=== PATIENT | female | born 1980 | race Caucasian/White ===

== ENCOUNTER → 2021-02-04 16:12 | Outpatient (CLI) | payer OTHER, SELFPAY ==
--- NOTE | ~2021-02-04 | MM_ITS ---
EXAMINATION: MM scrn tamika implant BI w bill HISTORY: Screening mammogram TECHNIQUE: Craniocaudal and mediolateral oblique 3-D tomosynthesis images with implant displacement a nd synthetic 2-D images were generated. Craniocaudal and mediolateral oblique views of the breasts wi thout implant displacement were obtained using full field digital mammography. CAD analysis was submi tted and interpreted. COMPARISON: No prior mammogram is available for comparison at this institution. BREAST PARENCHYMAL COMPOSITION: There are scattered areas of fibroglandular density. FINDINGS: Status post bilateral augmentation mammoplasty. There is no evidence of suspicious mass, ca lcification, or architectural distortion to suggest malignancy in either breast. There has been no mcnamara spicious interval change. IMPRESSION: 1. No mammographic evidence of malignancy. 2. Recommend routine screening mammography in one year. BI-RADS Category 1: Negative Reviewed, dictated and finalized at location A. CTOR SCRIPT
== END ==
PROVIDERS: PCP Internal Medicine; Visit Provider Advanced Practice Midwife
DX: Z12.31 Encounter for screening mammogram for malignant neoplasm of breast (principal)
CPT/HCPCS: 77063; 77067

== ENCOUNTER → 2021-02-04 16:15 | Outpatient (CLI) | payer OTHER, SELFPAY ==
--- NOTE | ~2021-02-04 | XR_ITS ---
EXAMINATION: XR TMJ BI DATE: 02/04/2021 17:17 INDICATION: Arthritis of bilateral temporomandibular joint. TECHNIQUE: Open and closed mouth views of the bilateral temporomandibular joints for a total of 4 vie ws were obtained. COMPARISON: None. FINDINGS: The mandibular condyles are normal in morphology. There is asymmetric narrowing of left tem poromandibular joint. There is normal anterior translation of the mandible condyles in the open-mouth position. IMPRESSION: 1. 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 Reviewed, dictated and finalized at location A. D OF EDUCATION SECRETARY
== END ==
PROVIDERS: PCP Internal Medicine; Visit Provider Internal Medicine
DX: M26.643 Arthritis of bilateral temporomandibular joint (principal)
CPT/HCPCS: 70330

== ENCOUNTER 2021-12-09 01:57 | Day surgery (SDC) | payer OTHER, SELFPAY ==
[2021-11-25 12:57] VITALS: BMI 23.8
[2021-12-09 11:41] VITALS: BP 129/92; PULSE 95; RESP 16; TEMP 36.9; O2SAT 100; BMI 23.2
--- NOTE | 2021-12-09 11:43 | WPDANESEPPF ---
Anes - Initial Pre Proc Eval Procedure: Operation Date: 12/09/21 13:00 Proposed Procedures p Colonoscopy - Hakeem Siddiqui MD s [facility] Hemorrhoid Treatment - Hakeem Siddiqui MD Date/Time: 12/09/21 11:43 Surgeon: Hakeem Siddiqui MD Pre Op Diagnosis: hemorrhoids, Diarrhea, melena Patient Data Age: 41 Gender: F Height: 1.63 m Weight: 63 kg Allergies Allergy/AdvReac Type Severity Reaction Status Date / Time No Known Allergies Allergy Verified 11/25/21 13:13 Home Medications Medication Instructions Recorded Confirmed Type cyclobenzaprine 10 mg tablet 10 mg PO TID 10/28/21 11/25/21 History hydrocortisone 2.5 % topical cream 1 applic RECTAL BID PRN 11/18/21 11/25/21 Rx with perineal applicator hemorrhoids #30 grams hyoscyamine sulfate 0.125 mg 0.125 mg PO .every 6 hours PRN 11/18/21 11/25/21 Rx tablet (Levsin) abdominal pain #120 tabs Patient hx anesthesia problems: none Family hx anesthesia problems: none Results Review: All pre-operative results and documents have been reviewed as part of the pre-operative evaluation. [facility] Past Medical History Medical History (Updated 11/18/21 @ 10:59 by Bernie Wilder APRN) Abdominal cramping Blood in stool External hemorrhoid, bleeding Surgical History Surgical History History of tonsillectomy (~2002) Hx of breast implants, bilateral (~1992) Family History Family History Mother Hypertension Sibling Thyroid disorder Grandparent Diabetes mellitus Hypertension Depression Cerebrovascular accident Cancer Grandparent Cancer Social History Social History Smoking status: Never smoker Second hand tobacco smoke exposure: No Alcohol intake: current Alcohol use details: social, maybe a few drinks once weekly Substance use: never Substance use type: does not use Living arrangements: with family Spiritual care concerns: No Anes - Eval Final PreProcedure Day of Procedure 12/09/21 11:43 Patient weight: normal Heart: regular rate and rhythm Lungs: clear to auscultation Airway: Mallampati scale class II Neurological: alert and oriented Last oral intake: >/= 8 hours ASA classification: II Emergent: no Anesthetic plan: proceed Anesthesia type and monitoring: general GIVS and standard monitoring Results Review: All pre-operative results and documents have been reviewed as part of the pre-operative evaluation. Informed Consent: The patient's anesthetic plan and its attendant risks and benefits were discussed with the patient/family/POA. Questions were solicited and answers provided to the satisfaction of the patient/family/POA.
[2021-12-09] MEDS: LACTATED RINGERS 1,000 ML 150 ML IV CONT (12:05)
--- NOTE | 2021-12-09 12:06 | WPDHPUPDATE1 ---
History and Physical Update Update Date/Time: 12/09/21 12:06 History and Physical has been reviewed, including an updated exam of the patient. There are NO changes in the patient's condition. Risks, benefits, and alternatives have been discussed and questions answered. Patient agrees to proceed with procedure.
[2021-12-09 12:27] VITALS: BP 124/87; PULSE 97; RESP 17; O2SAT 98
--- NOTE | 2021-12-09 12:29 | W.PM.PROC2 ---
Procedure Note - Detailed Date of Procedure 12/09/21 Pre-op Diagnosis hemorrhoids, Diarrhea, melena Post-op Diagnosis Same Procedure Performed IRC on internal hemorrhoids Surgeon Hakeem Siddiqui MD Description of Procedure noted external hemorrhoids, non-thrombosed, no fissure. Then anoscope was introduced and noted grade 2 internal hemorrhoids at 3-6 o'clock position, IRC probe advanced and internal hemorrhoids treated 1.5seconds x6
[2021-12-09 12:37] VITALS: BP 120/85; PULSE 103; RESP 16; O2SAT 100
[2021-12-09 12:47] VITALS: BP 132/95; PULSE 95; RESP 16; O2SAT 100
== END 2021-12-09 13:10 | disposition home or self-care (01) ==
PROVIDERS: PCP Internal Medicine; Visit Provider Internal Medicine Gastroenterology
PROC: 0DJD8ZZ Inspection of Lower Intestinal Tract, Via Natural or Artificial Opening Endoscopic (ICD-10-PCS; CPT 45378; principal; 2021-12-09 13:00)
PROC: (CPT 46930; 2021-12-09 13:00)
DX: K62.5 Hemorrhage of anus and rectum (principal); K64.1 Second degree hemorrhoids; K52.9 Noninfective gastroenteritis and colitis, unspecified; E73.9 Lactose intolerance, unspecified; R11.0 Nausea; R14.0 Abdominal distension (gaseous)
CPT/HCPCS: 46930; 45380; 88305; J2704; J7120

== ENCOUNTER → 2022-07-28 07:47 | Outpatient (CLI) | payer OTHER, SELFPAY ==
--- NOTE | ~2022-07-28 | MMUS_ITS ---
EXAMINATION: MM diag tamika implant BI w bill, US breast BI complete HISTORY: Mastodynia. Right breast pain at 1:00 intermittently for one month, now resolved. The latera l axillary area itching. TECHNIQUE: Implant displaced ML, MLO and CC 3-D tomosynthesis images of both breasts were performed a nd synthetic 2-D images were generated. Implant ML, MLO and CC views of both breasts. CAD analysis wa s submitted and interpreted. High resolution complete bilateral breast ultrasound examination includi ng all 4 quadrants and subareolar areas was performed. COMPARISON: 02/04/2021 bilateral implant screening mammogram BREAST PARENCHYMAL COMPOSITION: The breasts are heterogeneously dense, which may obscure small masses . FINDINGS: MAMMOGRAPHIC FINDINGS: Status post bilateral augmentation mammoplasty. No suspicious mass or architectural distortion, malignant calcification, skin thickening or retractio n or significant new or developing density is detected. ULTRASOUND: No suspicious mass or shadowing, cyst or other significant sonographic finding is noted at either jo-ann ast. IMPRESSION: 1. No mammographic evidence of malignancy 2. Routine annual mammographic screening is recommended BI-RADS Category 1: Negative Reviewed, dictated and finalized at location A. IMPRESSION: 1. No mammographic evidence of malignancy 2. Routine annual mammographic screening is recommended BI-RADS Category 1: Negative
== END ==
PROVIDERS: PCP Nurse Practitioner Obstetrics & Gynecology; Visit Provider Nurse Practitioner Obstetrics & Gynecology
DX: N64.4 Mastodynia (principal)
CPT/HCPCS: 76641; 77062; 77066; G0279

== ENCOUNTER 2023-09-10 13:32 | Outpatient (CLI) | payer OTHER, SELFPAY ==
--- NOTE | ~2023-09-10 | MM_ITS ---
EXAMINATION: MM scrn tamika implant BI w bill HISTORY: Screening mammogram TECHNIQUE: Craniocaudal and mediolateral oblique 3-D tomosynthesis images with implant displacement a nd synthetic 2-D images were generated. Craniocaudal and mediolateral oblique views of the breasts wi thout implant displacement were obtained using full field digital mammography. CAD analysis was submi tted and interpreted. COMPARISON: 02/04/2021 BREAST PARENCHYMAL COMPOSITION: Not dense: There are scattered areas of fibroglandular density. FINDINGS: There is no evidence of suspicious mass, calcification, or architectural distortion to sugg est malignancy in either breast. There has been no suspicious interval change. IMPRESSION: 1. No mammographic evidence of malignancy. 2. Recommend routine screening mammography in one year. BI-RADS Category 1: Negative Reviewed, dictated and finalized at location B.
== END 2023-09-10 13:33 ==
LOC: MICIMG 13:33
PROVIDERS: PCP Nurse Practitioner; Visit Provider Nurse Practitioner
DX: Z12.31 Encounter for screening mammogram for malignant neoplasm of breast (principal)
CPT/HCPCS: 77063; 77067

== ENCOUNTER 2024-09-12 15:43 | Outpatient (CLI) | payer OTHER, SELFPAY ==
--- NOTE | ~2024-09-12 | MM_ITS ---
EXAMINATION: MM scrn tamika implant BI w bill HISTORY: Screening mammogram TECHNIQUE: Craniocaudal and mediolateral oblique 3-D tomosynthesis images with implant displacement a nd synthetic 2-D images were generated. Craniocaudal and mediolateral oblique views of the breasts wi thout implant displacement were obtained using full field digital mammography. CAD analysis was submi tted and interpreted. COMPARISON: Comparison to multiple prior studies sequentially, with oldest reviewed study dated 07/2020. BREAST PARENCHYMAL COMPOSITION: Dense: The breasts are heterogeneously dense, which may obscure small masses FINDINGS: There is no evidence of suspicious mass, calcification, or architectural distortion to sugg est malignancy in either breast. There has been no suspicious interval change. IMPRESSION: 1. No mammographic evidence of malignancy. 2. Recommend routine screening mammography in one year. BI-RADS Category 1: Negative Reviewed, dictated and finalized at location B.
== END 2024-09-12 15:44 | disposition home or self-care (01) ==
LOC: MICIMG 15:44
PROVIDERS: PCP Nurse Practitioner; Visit Provider Student in an Organized Health Care Education/Training Program
DX: Z12.31 Encounter for screening mammogram for malignant neoplasm of breast (principal)
CPT/HCPCS: 77063; 77067

== ENCOUNTER 2025-01-06 19:15 | Emergency (ER) | payer OTHER, SELFPAY ==
[2025-01-06] VITALS (8 sets, daily range): BP systolic 152–194; BP diastolic 102–112; PULSE 79–86; RESP 12–18; TEMP 36.7; O2SAT 98–100
--- NOTE | ~2025-01-06 | XR_ITS ---
Examination: XR chest 2V Clinical History: HTN, CP Comparison: None Technique: PA and Lateral Findings: Cardiomediastinal silhouette normal size and configuration. Lungs clear. No acute bony abnormality. IMPRESSION: 1. No acute cardiopulmonary findings. Reviewed, dictated and finalized at location R.
--- NOTE | 2025-01-06 19:22 | ECG_ITS ---
Test Date: 2025-01-06 19:24:50 Measurements Intervals [place] Rate: 79 P: 80 PA: 95 QRS: 71 QRSD: 79 T: 41 QT: 356 QTc: 408 Interpretive Statements SINUS RHYTHM WITH SHORT PA INTERVAL POSSIBLE LEFT ATRIAL ENLARGEMENT BORDERLINE ST-T WAVE ABNORMALITY- ANTEROLAT/INF LEADS BASELINE ARTIFACT- I, III, AVL, AVF BORDERLINE ECG No previous ECG available for comparison Electronically Signed On 01-07-2025 08:21:41 CDT by Austin Kaba D.O.
[2025-01-06] MEDS: ASPIRIN 81 MG CHEWABLE TABLET 324 MG PO (19:35)
[2025-01-06 19:42] LABS: Hematocrit 42.0 % (37.0-47.0); Hemoglobin 13.9 g/dL (12.0-15.0); Immature Granulocyte Percent A 0.1 % (0-0.5); Lymphocytes Absolute Auto 2.36 K/mm3 (0.9-3.2); Mean Corpuscular HGB Conc 33.1 g/dl (32-36); Mean Corpuscular Hemoglobin 29.9 pg (26-34); Mean Corpuscular Volume 90.3 fl (80-100); Nucleated Red Blood Cells Absolute Auto 0.000 K/mm3 (0.0-0.012); Nucleated Red Blood Cells Perc 0.0 % (0.0-0.2); Platelet Count Result 303 k/mm3 (150-375); Red Blood Count 4.65 M/mm3 (4.2-5.4); White Blood Count 6.9 K/mm3 (4.5-10.0)
--- NOTE | 2025-01-06 19:45 | ED_ITS ---
HPI - General Adult General Chief complaint: Chest Pain Stated complaint: high blood pressure Time Seen by Provider: 01/06/25 19:24 History of Present Illness HPI narrative: patient 44-year-old female who presents emergency department with chief complaint of hypertension. 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 Patient states that she has no focal neurological deficit denies severe headache patient denies weakness in her arms or legs denies shortness of breath Related Data Allergies Allergy/AdvReac Type Severity Reaction Status Date / Time No Known Allergies Allergy Verified 05/02/24 10:36 Review of Systems 2 Review of Systems: A 10 system review of systems was completed on the patient and is negative except for what is stated in the HPI. Nursing and ancillary documentation was reviewed. [facility] Past Medical History Medical History BMI between 19-24,adult Abdominal cramping External hemorrhoid, bleeding Blood in stool Surgical History Surgical History History of tonsillectomy (~2002) Hx of breast implants, bilateral (~1992) Family History Family History Mother Hypertension Sibling Thyroid disorder Grandparent Diabetes mellitus Hypertension Depression Cerebrovascular accident Cancer Breast cancer Father No problems noted. Social History Social History Smoking status: Never smoker Second hand tobacco smoke exposure: No Alcohol intake: current Alcohol use details: social, maybe a few drinks once weekly Substance use: never Substance use type: does not use Do You Feel Safe in your Home?: Yes Lack of Transportation: No Lack of Food: Never True Current Housing: I Have Housing Concerned About Future Housing: No Difficulty Paying Gas/Electric Bills: No Difficulty Paying for Meds: No Currently Unemployed: No Education: Master's Degree or Higher Difficulty w/ Childcare or Family Care: No Living arrangements: with family Occupation/Education: occupation 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 HEAD: Normocephalic, atraumatic. EYES: PERRLA and EOMI. ENT: Nares clear, no rhinorrhea or epistaxis. Mucous membranes moist. NECK: Supple. CHEST: Clear to auscultation. No respiratory distress. HEART: Regular rate and rhythm. No murmur heard. Normal peripheral pulses. ABDOMEN: Soft, nontender, nondistended, normal active bowel sounds. EXTREMITIES: Normal range of motion. No edema. SKIN: Warm, dry, no rash. NEURO: No focal deficits. Alert and oriented x3. PSYCH: Normal mood and affect. Course Vital Signs Vital signs: Vital Signs Temperature 36.7 C 01/06/25 19:22 Pulse Rate 83 01/06/25 19:22 Respiratory Rate 14 01/06/25 19:22 Blood Pressure 194/112 H 01/06/25 19:22 Pulse Oximetry 100 01/06/25 19:22 Oxygen Delivery Room Air 01/06/25 19:22 Temperature 36.7 C 01/06/25 19:22 Pulse Rate 85 01/06/25 20:33 Respiratory Rate 18 01/06/25 20:33 Blood Pressure 154/112 H 01/06/25 20:33 Pulse Oximetry 98 01/06/25 20:33 Oxygen Delivery Room Air 01/06/25 20:35 Medical Decision Making MDM Narrative Medical decision making narrative: Differential diagnosis includes hypertensive urgency, ACS, The patient was mildly hypertensive with a pressure 194/112 Laboratory studies showed a white count of 6.9 hemoglobin was 13.9 electrolytes showed normal renal function troponin was negative BNP was 2 1 5 chest x-ray showed no focal infiltrates no cardiomegaly and no pulmonary edema EKG showed no acute ischemic changes The patient was started on a low-dose lisinopril Vital Signs Vital Signs: Vital Signs Temperature 36.7 C 01/06/25 19:22 Pulse Rate 83 01/06/25 19:22 Respiratory Rate 14 01/06/25 19:22 Blood Pressure 194/112 H 01/06/25 19:22 Pulse Oximetry 100 01/06/25 19:22 Oxygen Delivery Room Air 01/06/25 19:22 Temperature 36.7 C 01/06/25 19:22 Pulse Rate 85 01/06/25 20:33 Respiratory Rate 18 01/06/25 20:33 Blood Pressure 154/112 H 01/06/25 20:33 Pulse Oximetry 98 01/06/25 20:33 Oxygen Delivery Room Air 01/06/25 20:35 Lab Data 01/06/25 19:37 01/06/25 19:37 Labs: Lab Results 01/06/25 Range/Units 19:37 WBC 6.9 (4.5-10.0) K/mm3 RBC 4.65 (4.2-5.4) M/mm3 Hgb 13.9 (12.0-15.0) g/dL Hct 42.0 (37.0-47.0) % MCV 90.3 (80-100) fl MCH 29.9 (26-34) pg MCHC 33.1 (32-36) g/dl RDW 12.0 (11.5-14.5) % Plt Count 303 (150-375) k/mm3 MPV 9.1 (7.4-10.4) fl Immature Gran % (Auto) 0.1 (0-0.5) % Neut % (Auto) 55.6 (45.5-73.1) % Lymph % (Auto) 34.2 (18.3-44.2) % [place] % (Auto) 8.4 (2.6-8.5) % Eos % (Auto) 1.3 (0-4.4) % Baso % (Auto) 0.4 (0.2-1.2) % Lymph # (Auto) 2.36 (0.9-3.2) K/mm3 [place] # (Auto) 0.6 (0.1-0.6) K/mm3 Eos # (Auto) 0.1 (0-0.3) K/mm3 Baso # (Auto) 0.0 (0.0-0.1) K/mm3 Abs Immat Gran (auto) 0.01 (0.00-0.031) K/mm3 Absolute Neuts (auto) 3.8 (1.3-6.7) K/mm3 Absolute Nucleated RBC 0.000 (0.0-0.012) K/mm3 Nucleated RBC % 0.0 (0.0-0.2) % PT 13.2 (11.1-14.7) Seconds INR 1.0 APTT 25.7 (22.3-36.8) Seconds Sodium 135 L (137-145) mmol/L Potassium 4.0 (3.4-5.0) mmol/L Chloride 100 (98-107) mmol/L Carbon Dioxide 27 (22-30) mmol/L Anion Gap 8 (4-12) mmol/L BUN 12 (7-17) mg/dL Creatinine 0.64 L (0.7-1.0) mg/dL Estim Creat Clear Calc 83 ml/min Estimated GFR > 60 (59 - ) Glucose 92 (65-110) mg/dL Calcium 9.1 (8.4-10.2) mg/dL Total Bilirubin 0.7 (0.2-1.3) mg/dL AST 26 (14-36) U/L ALT 13 (6-35) U/L Alkaline Phosphatase 59 (38-126) U/L Troponin I < 0.012 (0.000-0.034) ng/mL NT-Pro-B Natriuret Pep 215 H (19.9-100) pg/mL Total Protein 7.9 (6.3-8.2) g/dL Albumin 4.4 (3.5-5.1) g/dL Lipase 99 (23-300) U/L Discharge Plan Discharge Clinical Impression: Hypertension Patient Disposition: Home Condition: Stable Instructions: Antibiotic Form, Hypertension (ED) Additional Instructions: It is recommended the keep a daily log of your blood pressure if you develop severe chest pain shortness of breath changes in your mental status weakness on 1 side of your body please return to the emergency department immediately Patient Language: Thai Prescriptions: New lisinopril 10 mg tablet 10 mg PO DAILY Qty: 30 0RF No Action norgestimate-ethinyl estradiol [[id number]] 0.18/0.215/0.25 mg-25 mcg tablet 1 tablet PO DAILY Qty: 84 3RF cyclobenzaprine 10 mg tablet 10 mg PO TID PRN (Reason: muscle spasm) Qty: 90 1RF valacyclovir 1 gram tablet 2,000 mg PO Q12H Qty: 12 1RF Rx Instructions: Take at onset of symptoms and repeat 12 hours later. Follow-up/Referrals: Jose Henry APRN [Primary Care Provider, Internal Medicine] Time of Disposition: 20:57
[2025-01-06 19:55] LABS: INR 1.0; Partial Thromboplastin Time 25.7 Seconds (22.3-36.8); Prothrombin Time 13.2 Seconds (11.1-14.7)
[2025-01-06 20:00] LABS: Alanine Aminotransferase 13 U/L (6-35); Albumin Level 4.4 g/dL (3.5-5.1); Alkaline Phosphatase 59 U/L (38-126); Anion Gap 8 mmol/L (4-12); Aspartate Amino Transferase 26 U/L (14-36); Bilirubin,Total 0.7 mg/dL (0.2-1.3); Blood Urea Nitrogen 12 mg/dL (7-17); Calcium 9.1 mg/dL (8.4-10.2); Carbon Dioxide 27 mmol/L (22-30); Chloride 100 mmol/L (98-107); Estimated CRCL calculation 83 ml/min; Estimated Glomerular Filt Rate > 60; Glucose 92 mg/dL (65-110); Lipase 99 U/L (23-300); Potassium 4.0 mmol/L (3.4-5.0); Sodium 135 mmol/L (137-145); Total Protein 7.9 g/dL (6.3-8.2)
[2025-01-06 20:07] LABS: Troponin I < 0.012 ng/mL (0.000-0.034)
[2025-01-06 20:33] LABS: NT Pro B Type Natriuretic Pept 215 pg/mL (19.9-100)
== END 2025-01-06 21:35 | disposition home or self-care (01) ==
PROVIDERS: Emergency Medicine; Emergency Provider Emergency Medicine; PCP Nurse Practitioner
DX: I10 Essential (primary) hypertension (principal); Z79.3 Long term (current) use of hormonal contraceptives; R94.31 Abnormal electrocardiogram [ECG] [EKG]
CPT/HCPCS: 36415; 71046; 80053; 83690; 83880; 84484; 85025; 85610; 85730; 93005; 99284; A9270